=== PATIENT | male | born 1985 | race Caucasian/White ===

== ENCOUNTER → 2020-09-21 12:18 | Outpatient (CLI) | payer OTHER, MEDICAID, SELFPAY ==
[2020-09-21 12:43] LABS: COVID19 -Nasal RAPID Negative (Negative)
== END ==
PROVIDERS: Family Provider Family Medicine; PCP Family Medicine; Visit Provider Student in an Organized Health Care Education/Training Program
DX: Z20.822 Contact with and (suspected) exposure to COVID-19 (principal)
CPT/HCPCS: 87635

== ENCOUNTER 2021-09-24 05:17 | Emergency (ER) | payer OTHER, MEDICAID, SELFPAY ==
[2021-09-24 05:25] VITALS: BP 155/68; PULSE 80; RESP 20; TEMP 35.7; O2SAT 99
--- NOTE | 2021-09-24 06:31 | ED.DIZZY ---
HPI - Dizziness <Theresa Santana DO - Last Filed: 09/25/21 07:36> General Chief Complaint: Dizziness Stated Complaint: disoriented and dizzy Time Seen by Provider: 09/24/21 05:31 Source: patient Mode of arrival: Ambulatory Limitations: no limitations History of Present Illness HPI Narrative: This is a 35-year-old male who comes emergency department complaining of feeling dizzy like the room is moving or he is on a boat. He states he went to bed felt totally normal last night. Woke up this morning and feels like he is on a boat. He denies any spinning of the room. Denies any headache. Denies any recent nasal congestion or upper respiratory infections. No ear pain or fullness. Patient denies any chest pain or shortness of breath. Had some nausea early but it has resolved. He states the since patient has been improving as time goes by. He felt very off balance when he 1st stood up but is able to ambulate much more normally now. Patient denies any other GI or urinary symptoms. No swelling in extremities. Related Data Home Medications Medication Instructions Recorded Confirmed gabapentin 100 mg capsule 100 mg PO TID cap 01/08/18 09/03/21 meloxicam submicronized 10 mg 10 mg PO DAILY 01/08/18 09/03/21 capsule omeprazole 40 mg capsule,delayed 40 mg PO DAILY 01/08/18 09/03/21 release diclofenac sodium 1 % topical gel 2 gram TOP QID 08/08/18 09/03/21 (Voltaren) levothyroxine 50 mcg tablet 50 mcg PO DAILY #30 tab 10/08/18 09/03/21 Previous Rx's Medication Instructions Recorded albuterol sulfate 90 mcg/actuation 0 INH SEE INSTRUCTIONS #1 inh 10/21/12 aerosol inhaler (Proventil HFA) meclizine 25 mg tablet 25 mg PO TID PRN #14 tab 09/24/21 Allergies Allergy/AdvReac Type Severity Reaction Status Date / Time PENICILLIN Allergy Mild Uncoded 09/03/21 18:29 SULFA Allergy Mild Uncoded 09/03/21 18:29 Review of Systems <DO Pranav Zhang Last Filed: 09/25/21 07:36> Review of Systems ROS Unobtainable: All systems reviewed & are unremarkable except as noted in HPI and below Patient History <Theresa Santana DO - Last Filed: 09/25/21 07:36> Medical History Bronchitis Sinusitis Social History Smoking Status: Current every day smoker Smoking Status: Current every day smoker Substance Use Type: does not use Exam <DO Pranav Zhang Last Filed: 09/25/21 07:36> Narrative Exam Narrative: GEN: Obese male, alert and oriented, patient appears to be in mild distress. HEENT: Atraumatic, pupils are equal round reactive to light, extraocular movements are intact, nares are clear, TMs are clear with no fluid, there is no conjunctival pallor. Throat is clear without any exudates, erythema, tonsillar enlargement or uvular deviation, no facial droop. HEART: Regular rate and rhythm without murmur, clicks, rubs. LUNGS:Lungs clear to auscultation, no wheezes, rales, crackles, chest moves symmetrically ABD:bowel sounds normal, soft, non-tender, no guarding, rebound, rigidity, no masses noted, no hepatosplenomegaly :No CVA tenderness MSCL: Non-tender, no muscle atrophy, muscles strength 5/5 upper and lower extremities, full range of motion, normal gait NEURO:CN 2-12 intact, sensation normal, reflexes 2/4 upper and lower extremities. finger nose finger test normal, heel mo test normal, romberg normal SKIN: No rash or erythema or skin changes. Initial Vital Signs Initial Vital Signs: Vital Signs Temperature 96.2 F L 09/24/21 05:25 Pulse Rate 80 09/24/21 05:25 Respiratory Rate 20 09/24/21 05:25 Blood Pressure 155/68 H 09/24/21 05:25 Pulse Oximetry 99 09/24/21 05:25 <Deandra Gayle DO - Last Filed: 09/24/21 16:08> Initial Vital Signs Initial Vital Signs: Vital Signs Temperature 96.2 F L 09/24/21 05:25 Pulse Rate 80 09/24/21 05:25 Respiratory Rate 20 09/24/21 05:25 Blood Pressure 155/68 H 09/24/21 05:25 Pulse Oximetry 99 09/24/21 05:25 Scores <Theresa Santana DO - Last Filed: 09/25/21 07:36> NIH Stroke Scale Level of Conciousness: Alert, keenly responsive Ask month/age: Answers both questions correctly. Open/close eyes, close hand: Performs both tasks correctly Best gaze horizontal: Normal Visual mckinney: No visual loss Facial palsy: Normal symetrical movement Left arm drift: No drift for full 10 sec Right arm drift: No drift for full 10 sec Left leg drift: No drift for full 5 sec Right leg drift: No drift for full 5 sec Limb ataxia: Absent Sensory on face/arms/legs: Normal, no sensory loss Best language: No aphasia, normal Dysarthria: Normal Extinction or inattention: No abnormality Total NIH Stroke scale score: 0 <Deandra Gayle DO - Last Filed: 09/24/21 16:08> NIH Stroke Scale Total NIH Stroke scale score: 0 Course <Theresa Santana DO - Last Filed: 09/25/21 07:36> Orders Ordered: ED Orders 09/24/21 07:42 Basic Metabolic Panel Stat Complete Blood Count AUTO DIFF Stat Vital Signs Vital signs: Vital Signs - 8 hr 09/24/21 08:49 Pulse Rate 66 Respiratory Rate 18 Blood Pressure 148/80 H Pulse Oximetry 98 <Deandra Gayle DO - Last Filed: 09/24/21 16:08> Orders Ordered: ED Orders 09/24/21 07:42 Basic Metabolic Panel Stat Complete Blood Count AUTO DIFF Stat Vital Signs Vital signs: Vital Signs - 8 hr 09/24/21 08:49 Pulse Rate 66 Respiratory Rate 18 Blood Pressure 148/80 H Pulse Oximetry 98 MDM - Dizziness <Theresa Santana DO - Last Filed: 09/25/21 07:36> Lab Data Result diagrams: 09/24/21 07:42 09/24/21 07:42 Labs: Lab Results 09/24/21 09/24/21 Range/Units 07:42 07:42 WBC 9.7 (4.5-11.0) X10^3/uL RBC 4.80 (4.5-5.9) X10^6/uL Hgb 13.8 (13.5-17.5) g/dL Hct 40.0 L (41-53) % MCV 83.3 (80-100) fL MCH 28.7 (26-34) PG MCHC 34.4 (30-36) % RDW 14.3 (11.6-14.8) % Plt Count 218 (150-400) X10^3/uL Neut % (Auto) 50.6 (50-75) % Lymph % (Auto) 36.6 (25-40) % Davidson % (Auto) 8.5 (3-14) % Eos % (Auto) 2.8 (2-4) % Baso % (Auto) 1.5 (0-2) % Neut # (Auto) 4900 (0823-9477) /uL Lymph # (Auto) 3600 (6214-8146) /uL Davidson # (Auto) 800 (0-900) /uL Eos # (Auto) 300 (0-450) /uL Baso # (Auto) 100 (0-100) /uL Sodium 140 (137-145) mmol/L Potassium 4.4 (3.4-5.1) mmol/L Chloride 105 (98-107) mmol/L Carbon Dioxide 29 (22-32) mmol/L BUN 14 (9-20) mg/dL Creatinine 0.70 (0.66-1.25) mg/dL Estimated GFR > 60 (>60) mL/min BUN/Creatinine Ratio 20.0 (6-22) Glucose 96 (70-100) mg/dL Calcium 9.1 (8.4-10.2) mg/dL ECG Data Attestation: I personally reviewed and interpreted this ECG as follows: Interpretation: Sinus rhythm rate of 73 NV 164 QRS of 102 and QTC 451. No acute ST elevation depression. [facility] Narrative Medical decision making narrative: This is a 35-year-old male who comes in with complaint of waking up with vertigo like symptoms. Patient is not have any acute neurologic changes. Patient is obese but does not have any other risk factors for stroke, suspect benign etiology but head CT and labs were obtained. Patient was signed out to Dr. Gayle while awaiting final results. Patient's symptoms have improved and he defers any meclizine or other medications. <Deandra Gayle, DO - Last Filed: 09/24/21 16:08> Lab Data Labs: Lab Results 09/24/21 09/24/21 Range/Units 07:42 07:42 WBC 9.7 (4.5-11.0) X10^3/uL RBC 4.80 (4.5-5.9) X10^6/uL Hgb 13.8 (13.5-17.5) g/dL Hct 40.0 L (41-53) % MCV 83.3 (80-100) fL MCH 28.7 (26-34) PG MCHC 34.4 (30-36) % RDW 14.3 (11.6-14.8) % Plt Count 218 (150-400) X10^3/uL Neut % (Auto) 50.6 (50-75) % Lymph % (Auto) 36.6 (25-40) % Davidson % (Auto) 8.5 (3-14) % Eos % (Auto) 2.8 (2-4) % Baso % (Auto) 1.5 (0-2) % Neut # (Auto) 4900 (6127-8112) /uL Lymph # (Auto) 3600 (2085-1087) /uL Davidson # (Auto) 800 (0-900) /uL Eos # (Auto) 300 (0-450) /uL Baso # (Auto) 100 (0-100) /uL Sodium 140 (137-145) mmol/L Potassium 4.4 (3.4-5.1) mmol/L Chloride 105 (98-107) mmol/L Carbon Dioxide 29 (22-32) mmol/L BUN 14 (9-20) mg/dL Creatinine 0.70 (0.66-1.25) mg/dL Estimated GFR > 60 (>60) mL/min BUN/Creatinine Ratio 20.0 (6-22) Glucose 96 (70-100) mg/dL Calcium 9.1 (8.4-10.2) mg/dL Imaging Data CT scan - head: Radiologist's Impression: CT Scan Report Signed Patient: Jaswant Chung MR#: [id number] : 1985 Acct:[id number] Age/Sex: 35 / M Date of Service: 09/24/21 Loc: ED Accession Number: [id number] ?? Procedure: CT head/brain wo con Ordering Provider: Theresa Santana D.O. PROCEDURE:? CT HEAD/BRAIN WO CON ? INDICATIONS:? vertigo ? TECHNIQUE:? Noncontrast 4.5 mm thick angled axial sections acquired from the foramen magnum to the vertex, with coronal and sagittal reformats.? For radiation dose reduction, the following was used:? automated exposure control, adjustment of mA and/or kV according to patient size.? ? COMPARISON:? None. ? FINDINGS:? Image quality:? Excellent.? ? CSF spaces:? Basal cisterns are patent.? No extra-axial fluid collections.? Ventricles are normal in size and shape.? ? Brain:? No midline shift.? No intracranial masses or hemorrhage.? Saucedo-white matter interface is normal.? ? Skull and face:? Calvarium and visualized facial bones are intact, without suspicious lesions.? ? Sinuses:? Mild mucosal thickening in the maxillary sinuses.? The mastoids are clear.? ? IMPRESSION:? No acute intracranial disease process. ? ? Dictated by: Hina Bui MD, PhD on 09/24/2021 at 8:14 ?? MDM Narrative Medical decision making narrative: This is a 35-year-old male who comes in with complaint of waking up with vertigo like symptoms. Patient is not have any acute neurologic changes. Patient is obese but does not have any other risk factors for stroke, suspect benign etiology but head CT and labs were obtained. Patient was signed out to Dr. Gayle while awaiting final results. Patient's symptoms have improved and he defers any meclizine or other medications. Patient signed out to me by Dr. Santana. I have seen evaluated patient myself. His symptoms have overall improved. He has no focal deficits head CT and blood work EKG are reassuring. He does not need any medication now. Family history of vertigo as well. Overall for feeling better. Discharge Plan Departure Patient Disposition: Home Clinical Impression: Vertigo Instructions: DI for Vertigo Activity Restrictions/Additional Instructions: Follow-up with ENT if you are having persistent symptoms of vertigo. Call for an appointment. You may take meclizine 1-2 tablets every 6 hours as needed Prescription sent to [facility]. Please return for severe headaches, new vision changes, rapidly worsening symptoms inability to walk, new numbness, tingling or weakness, facial droop or difficulty, persistent vomiting or other new or concerning symptoms. Prescriptions: New meclizine 25 mg tablet 25 mg PO TID PRN (Reason: dizziness) Qty: 14 0RF No Action diclofenac sodium [Voltaren] 1 % gel 2 gram TOP QID 0RF gabapentin 100 mg capsule 100 mg PO TID 0RF meloxicam submicronized 10 mg capsule 10 mg PO DAILY 0RF omeprazole 40 mg capsule,delayed release(DR/EC) 40 mg PO DAILY 0RF levothyroxine 50 mcg tablet 50 mcg PO DAILY Qty: 30 0RF albuterol sulfate [Proventil HFA] 90 MCG/PUFF HFA aerosol inhaler 0 INH SEE INSTRUCTIONS Qty: 1 0RF Referrals: Dre Collado MD [Primary Care Provider] -
--- NOTE | 2021-09-24 06:44 | DI.CT.S_ITS ---
PROCEDURE: CT HEAD/BRAIN WO CON INDICATIONS: vertigo TECHNIQUE: Noncontrast 4.5 mm thick angled axial sections acquired from the foramen magnum to the vertex, with coronal and sagittal reformats. For radiation dose reduction, the following was used: automated exposure control, adjustment of mA and/or kV according to patient size. COMPARISON: None. FINDINGS: Image quality: Excellent. CSF spaces: Basal cisterns are patent. No extra-axial fluid collections. Ventricles are normal in size and shape. Brain: No midline shift. No intracranial masses or hemorrhage. Saucedo-white matter interface is normal. Skull and face: Calvarium and visualized facial bones are intact, without suspicious lesions. Sinuses: Mild mucosal thickening in the maxillary sinuses. The mastoids are clear. IMPRESSION: No acute intracranial disease process. Dictated by: Hina Bui MD, PhD on 09/24/2021 at 8:14 Approved by: Hina Bui MD, PhD on 09/24/2021 at 8:15
[2021-09-24 07:54] LABS: Add Manual Diff / Slide Review NO; Basophils Absolute Auto 100 /uL (0-100); Basophils Percent Auto 1.5 % (0-2); Eosinophils Absolute Auto 300 /uL (0-450); Eosinophils Percent Auto 2.8 % (2-4); Hemoglobin 13.8 g/dL (13.5-17.5); Lymphocytes Absolute Auto 3600 /uL (1100-4500); Lymphocytes Percent Auto 36.6 % (25-40); Mean Corpuscular HGB Conc 34.4 % (30-36); Mean Corpuscular Hemoglobin 28.7 PG (26-34); Mean Corpuscular Volume 83.3 fL (80-100); Monocytes Absolute Auto 800 /uL (0-900); Monocytes Percent Auto 8.5 % (3-14); Neutrophils Absolute Auto 4900 /uL (1500-7000); Neutrophils Percent Auto 50.6 % (50-75); Platelet Count 218 X10^3/uL (150-400); Red Cell Distribution Width 14.3 % (11.6-14.8); White Blood Cell Count 9.7 X10^3/uL (4.5-11.0)
[2021-09-24 08:00] LABS: Blood Urea Nitrogen 14 mg/dL (9-20); Calcium 9.1 mg/dL (8.4-10.2); Carbon Dioxide 29 mmol/L (22-32); Chloride 105 mmol/L (98-107); Estimated Glomerular Filt Rate > 60 mL/min (>60); Glucose 96 mg/dL (70-100); HEMOLYSIS 39 (0-50); Potassium 4.4 mmol/L (3.4-5.1); Sodium 140 mmol/L (137-145)
[2021-09-24 08:49] VITALS: BP 148/80; PULSE 66; RESP 18; O2SAT 98
== END 2021-09-24 08:54 | disposition home or self-care (01) ==
PROVIDERS: Emergency Medicine; Emergency Provider Emergency Medicine; Family Provider Family Medicine; PCP Family Medicine
DX: R42 Dizziness and giddiness (principal)
CPT/HCPCS: 36415; 70450; 80048; 85025; 93005; 99284

== ENCOUNTER → 2022-05-13 13:53 | Outpatient (CLI) | payer OTHER, MEDICAID, SELFPAY ==
--- NOTE | 2022-05-13 14:09 | DIET.CONS ---
Dietary Consultation Note Assessment: 36y M attending first of twelve pre-bariatric nutrition visits for gastric bypass at [facility] through [employer] insurance. Pt grew up in [place] has always had a large body. Pt states his mom's side of the family also has large habitus including his biological brother. Pt very motivated to have surgery, would like to lose 200#. 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 Pt lives in transitional housing with disabled and two daughters aged 6y and 12y. Pt reports family are picky eaters (processed foods). Pts nutrition choices complicated by food insecurity. EBT benefits $800/mo but run out half-way through month Tuesday morning food bank bags Pt reports himself an emotional and boredom eater though no hx eating disorder. Usual Day: wakes at 6am B: hit or miss, sometimes breakfast sandwich or two- homemade or from [employer], lots of coffee c albanian vanilla creamer L: leftovers, sandwich, sometimes eats out D: pizza, stew, protein starch (rice and pasta), dessert or corn Sn: crackers, chips- more savory options, some sweets but not much Ursula: NOS energy drinks (51g added sugar x2) likes kris fizzy water Ht: 5'11 Wt: 190kg BMI: 56.8 Goal Weight: 200# Nutrition Diagnosis: Class 3 obesity r/t undesirable food intake, physical inactivity, and nutrition related knowledge deficit aeb BMI 56.8, pt with osteoarthritis of knee with sedentary lifestyle, pt reports emotional and boredom eating, pt worried he will have to subsist on steamed vegetables. Interventions: 1. Reviewed requirements for [facility] b[facility]ric program. Pt understands and agrees to twice monthly visits with RD x12. Pt able to reschedule up to 2 visits. 2. Discussed various bariatric surgical options and nutritional consequences of each. 3. Began education with added sugar in the diet. Pt consuming 102g added sugar daily in two beverages plus more in PO intake. Pt's first goal is to switch to SF energy drink and eliminate NOS drinks. Monitoring/Evaluations: f/u in 2w for second education and monitoring session. Electronically Signed by: Heike Kumari 05/13/22 14:09 Clinical Dietitian [address] [address]
== END ==
PROVIDERS: Family Provider Family Medicine; PCP Family Medicine; Referring Provider Neuromusculoskeletal Medicine & OMM; Visit Provider Neuromusculoskeletal Medicine & OMM
DX: E66.01 Morbid (severe) obesity due to excess calories (principal); Z68.43 Body mass index [BMI] 50.0-59.9, adult; Z71.3 Dietary counseling and surveillance
CPT/HCPCS: 97802

== ENCOUNTER → 2022-05-24 10:25 | Outpatient (CLI) | payer OTHER, MEDICAID, SELFPAY ==
--- NOTE | 2022-05-24 10:29 | DIET.OUTPTC ---
Dietary Outpatient Consultation Note Consultation Date: 05/24/2022 36y M attending 2 of 12 pre-bariatric nutrition visits to qualify for bariatric surgery. Pt reports weight on home scale: 436# (-4# in 2w, 440# starting out on home scale) Pt had goals two first session: 1. Establish with PCP from . Completed. Pt established c Dr. Rebolledo, first visit 05/31/22. Will be important for pt and PCP to check to ensure they can transfer bariatric surgery referral, as it was initiated through pts previous PCP at [facility]. Pt would benefit from new labs and vitamin D check. Pts morbid obesity puts him at risk for low vitamin D. Pt is low income, could benefit from Rx Vitamin D if indicated. 2. Pt will stop drinking full kcal NOS energy drinks and switch to sugar free variety and seltzer water. Success to date. Pt had one slip up, this morning where he drank full kcal NOS. Pt had coffee but dropped mug and broke it. Was mug his father gave him which made him feel emotional. Pt looked in fridge, no SF energy drinks, only full kcal NOS so drank it. Pt felt guilty doing this. Otherwise had no soda or other energy drinks x2w. Pt states in addition to above goals being met, pt has been walking twice as much as usual ([place] [employer] dog park, skate park). Pt reports instead of tossing ball for dog from one spot, he continuously moves around to throw the ball. Pt states his knees are doing ok with this increased activity. Pt inquires about weight loss supplements and any other supplements he may need for health. Has heard magnesium is good one to take. Pt reports his family is out of EBT benefits which won't be refilled for another 11 days. He states this often happens because they overspend on food for holiday meals and because daughters are eating at home more from being off during winter break. Reiterated using the [employer] free shop coupon if he can get over to [place]. Interventions: 1. Reinforced pts good progress to date and success with first goals.Reiterated this is a marathon not a sprint, so we will continue working on crafting plan that will be successful for pt. 2. Discussed supplements in general and those for weight loss. Encouraged pt to have PCP run pricing for semaglutide in case copay is low as it is FDA approved for weight management. Other weight loss supplements not proven to be safe nor indicated. Best plan is to get nutrients from food first and only supplement in necessary. Encouraged pt to get labs drawn including Vit D as pt at risk of low Vit D due to body habitus. 3. Collaborated c pt on processing circumstances and behaviors surrounding intake of high sugar energy drink this morning. Pt states having SF options in fridge protective against drinking the NOS. Pt commits to keeping several in fridge at all times as rest of family won't drink them and he likes them. New Goals: 1. Pt will abstain from consuming all sugar sweetened beverages. 2.Pt will stay active while playing with dog at dog park as tolerated. Monitoring/Evaluation: f/u in 2w to continue monitoring. Visit 3 will educate pt on keeping food record. Electronically Signed by: Heike Kumari 05/24/22 10:29 Clinical Dietitian [address] [address]
== END ==
PROVIDERS: Referring Provider Neuromusculoskeletal Medicine & OMM; Visit Provider Neuromusculoskeletal Medicine & OMM
DX: Z71.3 Dietary counseling and surveillance (principal)
CPT/HCPCS: 97803

== ENCOUNTER → 2022-06-07 11:33 | Outpatient (CLI) | payer OTHER, MEDICAID, SELFPAY ==
--- NOTE | 2022-06-07 11:37 | DIET.CONS ---
Dietary Consultation Note Assessment: 36y M attending third of 12 nutrition visits to qualify for bariatric surgery at through [employer]. Pt met with Dr. Rebolledo last week and has lost 13# since initiation of nutrition visits through increased physical activity and elimination of sugar sweetened beverages. Pt now drinking SF fizzy water and SF energy drinks, has not had any sugar beverages x2w. Pt expresses some frustration over his family's eating habits. They prefer UPFs but pt likes veggies. Feels bad to be spending money on himself and also over the time it takes to make separate meals for himself and his family. Pt has been stepping up his walking and reducing sedentary time. Wt: 427# (440# when started) Interventions: 1. Reinforced pts lifestyle changes thus far and starting weigh in process with new PCP. Pts original bariatric referral was through last PCP at [facility]. 2. Educated pt on food journalling. Provided journal sheets and instructions for logging next two weeks. Monitoring/Evaluations: f/u in 2w for 08/25 visit, will review food journal and make nutrition related goals to continue weight loss for surgery. Electronically Signed by: Heike Kumari 06/07/22 11:37 Clinical Dietitian [id number] [place] [address]
== END ==
PROVIDERS: Referring Provider Neuromusculoskeletal Medicine & OMM; Visit Provider Neuromusculoskeletal Medicine & OMM
DX: Z71.3 Dietary counseling and surveillance (principal)
CPT/HCPCS: 97803

== ENCOUNTER → 2022-06-21 10:26 | Outpatient (CLI) | payer OTHER, MEDICAID, SELFPAY ==
--- NOTE | 2022-06-21 10:40 | DIET.OUTPTC ---
Dietary Outpatient Consultation Note Consultation Date: 06/21/2022 36y M attending 4th of 12 pre-bariatric nutrition visits. Pt had covid x10d, came out of quarantine yesterday. Pt did not log PO intake as he was having N/V and wasn't eating much, what he was eating was unusual for him. Pt continues to walk dog, noticing his clothes are fitting more loose, pt with reduced inflammation in knee. Plan for f/u in 2w to review food log. Reiterated importance of sharing this information with RD so we can discuss current intake and make meaningful changes to support weight loss efforts. Electronically Signed by: Heike Kumari 06/21/22 10:40 Clinical Dietitian [id number] [place] [address]
== END ==
PROVIDERS: Referring Provider Neuromusculoskeletal Medicine & OMM; Visit Provider Neuromusculoskeletal Medicine & OMM
DX: Z71.3 Dietary counseling and surveillance (principal)
CPT/HCPCS: 97803

== ENCOUNTER → 2022-07-05 10:25 | Outpatient (CLI) | payer OTHER, MEDICAID, SELFPAY ==
--- NOTE | 2022-07-05 10:30 | DIET.OUTPTC ---
Dietary Outpatient Consultation Note Consultation Date: 07/05/2022 36[address] M attending RD f/u for 5th of 12 outpatient pre-bariatric nutrition visits. Pt weighed by PCP this mornin# (-6# in 1mo, starting weight 427#, 15# to go) Pt has been walking daily. Instead of standing at dog park, is walking while dog plays. Also walking around town more. Pt brought in food logs. Diet recall shows high pro breakfast, portion controlled lunch and portion controlled dinner with no intake sugar sweetened beverages. Pt incorporating high pro snacks. Pt with some intake sweets but minimal portion size. Usual Day: B: 4-5 scrambled eggs L: 1 1/2 c mixed meal like chicken with pasta D: 1c high fiber breakfast cereal with whole milk Sn: string cheese or canned chicken Sn: SF popsicle or small slice carrot cake Ursula: 6-8 cups water, 4 SF carbonated santos, 2 SF energy drinks Pt gave remainder of carrot cake to his mom so he would not be tempted by it this week. Interventions: 1. Reviewed food log. Discussed increasing intake F/V starting with one serving each daily. Provided handout on 5 ways to cook broccoli as pt states this is his favorite veg. 2. Reinforced pts efforts at logging intake, provided additional diet log sheets. Reinforced pts abstinence from sugar drinks and keeping sweet portions low. Pt progressing well with efforts. Pt remains motivated. Pt starting PT in late July for 12w. F/u in 2w to continue monitoring and education. Electronically Signed by: Heike Kumari 07/05/22 10:30 Clinical Dietitian [address] [address]
== END ==
PROVIDERS: PCP Family Medicine; Referring Provider Neuromusculoskeletal Medicine & OMM; Visit Provider Neuromusculoskeletal Medicine & OMM
DX: Z71.3 Dietary counseling and surveillance (principal)
CPT/HCPCS: 97803

== ENCOUNTER → 2022-07-19 10:27 | Outpatient (CLI) | payer OTHER, MEDICAID, SELFPAY ==
--- NOTE | 2022-07-19 11:17 | DIET.OUTPTC ---
Dietary Outpatient Consultation Note Consultation Date: 07/19/2022 36y M attending 6th of [address] visits for bariatric surgery. Pt has weigh in with PCP this afternoon. Pt brings in his food logs for review. Pt doing well eating 3 meals per day and 1 snack. B: eggs L: mixed meal-protein/carb D: mixed meal-protein/carb Sn: beef jerky or cheese stick or SF popsicle Pt not walking as much as last visit. The weather has been cold and it is slippery outside. Pts knees bothering him more. Instead of 3 laps, doing 1 lap at [employer]. Pts daughter starts softball next week. He plans to practice with her at home to increase PA. Pt desires to do a month of ketogenic diet to see what it is like and if it helps his weight loss. Educated pt on importance of low fat/low carb/high protein diet after bariatric surgery for continued weight management. Pt understands, still would like to proceed with 1mo keto diet trial and likely to try with/without RD help. Educated pt on ketogenic diet including 30g net carb limit. Reviewed foods to avoid and those to include. Practiced label reading for total carbs and fiber. Educated pt on keto urine test strips and using daily for first 2w to ensure in ketosis. Encouraged maintaining kcal deficit and keeping PA high to support weight loss efforts. F/u in 2w to review food diary. Electronically Signed by: Heike Kumari 07/19/22 11:17 Clinical Dietitian [address] [place] [address]
== END ==
PROVIDERS: PCP Family Medicine; Referring Provider Neuromusculoskeletal Medicine & OMM; Visit Provider Neuromusculoskeletal Medicine & OMM
DX: E66.01 Morbid (severe) obesity due to excess calories (principal); Z71.3 Dietary counseling and surveillance
CPT/HCPCS: 97803

== ENCOUNTER → 2022-08-02 10:27 | Outpatient (CLI) | payer OTHER, MEDICAID, SELFPAY ==
--- NOTE | 2022-08-02 16:07 | DIET.OUTPTC ---
Dietary Outpatient Consultation Note Consultation Date: 08/02/2022 36y M attending 7 of 12 prebariatric visits to qualify for bariatric surgery. Pt weighed by PCP today: 405# (-11# in 2w, starting weight 427#, pt has achieved his weight requirement for bariatric surgery of 22#) Pt tried ketogenic diet for about a week but fell out of ketosis and was crabby so decided he wanted to go back to sensible eating and exercise for weight loss. Pt continues to eat 3 meals and one snack daily. He said he has eaten more broccoli and brussels sprouts this year than in the past few years combined. His favorite way to prepare them are steamed. He purchased a steamer basket and enjoys using it. Pt continues to walk daily. He played basketball yesterday and it felt great. Pt very motivated to continue weight loss journey. Pt getting mixed messages from family and friends. Many want him to try to lose weight naturally and not through surgery. Pt knows he is focused and doing good job, but also feels he would benefit from the help of bariatric surgery to meet his ultimate goal of attaining 180#. Discussed with pt excellent progress so far, potential benefits and side effects of surgery. Encouraged pt to continue process and lose weight through required RD visits and come to bariatric center with list of concerns. Encouraged pt to lean on family and friends that are encouraging of him. Pt with concerns that quitting smoking will be big mary. Discussed habit of smoking and addictive nature of nicotine as two separate factors he can address to cut down. Encouraged pt to talk with PCP about options. f/u in 4w as RD out of town over spring. Electronically Signed by: Heike Kumari 08/02/22 16:07 Clinical Dietitian [address] [address]
== END ==
PROVIDERS: PCP Family Medicine; Referring Provider Family Medicine; Visit Provider Neuromusculoskeletal Medicine & OMM
DX: Z71.3 Dietary counseling and surveillance (principal)
CPT/HCPCS: 97803

== ENCOUNTER → 2022-08-31 15:53 | Outpatient (CLI) | payer OTHER, MEDICAID, SELFPAY ==
--- NOTE | 2022-09-01 17:20 | DIET.OUTPTC ---
Addendum entered by Heike Kumari 09/06/22 09:08: Consultation Date was 08/31/22, date below is an error. Original Note: Dietary Outpatient Consultation Note Consultation Date: 09/01/2022 36y M attending pre-bariatric nutrition visit. Current weight: 396# (-8# in 4w, -46# since starting pre-bariatric counselling) Pt has lost 10.5% of his weight to date. Pt following sensible eating patterns of 3 meals and one snack daily, low in carbohydrates. Pt only drinking water or calorie free beverages. Pt being physically active every day. f/u in 2w to continue required nutrition visits to qualify for surgery. Electronically Signed by: Heike Kumari 09/01/22 17:20 Clinical Dietitian [address] [address]
== END ==
PROVIDERS: PCP Family Medicine; Referring Provider Neuromusculoskeletal Medicine & OMM; Visit Provider Neuromusculoskeletal Medicine & OMM
DX: Z01.818 Encounter for other preprocedural examination (principal); Z71.3 Dietary counseling and surveillance
CPT/HCPCS: 97803

== ENCOUNTER → 2022-09-14 15:56 | Outpatient (CLI) | payer OTHER, MEDICAID, SELFPAY ==
--- NOTE | 2022-10-12 16:26 | DIET.OUTPTC ---
Dietary Outpatient Consultation Note Consultation Date: 09/14/2022 36y M attending 9th of 12 pre-bariatric nutrition visits to qualify for bariatric surgery. Pt has lost an additional 5# putting him at total weight loss of 51# at 391#. Pt continues to eat healthfully limiting sugar and not consuming sugar sweetened drinks. Pt continues to exercise daily by walking and started swimming as well. Pt excellent progress thus far. F/u in 2w to continue monitoring. Electronically Signed by: Heike Kumari 10/12/22 16:26 Clinical Dietitian [address] [address]
== END ==
PROVIDERS: PCP Family Medicine; Referring Provider Neuromusculoskeletal Medicine & OMM; Visit Provider Neuromusculoskeletal Medicine & OMM
DX: Z71.3 Dietary counseling and surveillance (principal)
CPT/HCPCS: 97803

== ENCOUNTER → 2022-10-19 15:50 | Outpatient (CLI) | payer OTHER, MEDICAID, SELFPAY ==
--- NOTE | 2022-10-26 16:45 | DIET.OUTPTC ---
Dietary Outpatient Consultation Note Consultation Date: 10/19/2022 36y M attending 12th of 12 pre-bariatric nutrition visits to qualify for bariatric surgery. Pt current weight today: 376# which is 10.1% below his starting weight of 418#. Pt has been compliant with diet diary, has achieved and surpassed his weight loss requirement and will be an excellent candidate for bariatric surgery. Pt working out daily, attending PT weekly and complying with high protein low carbohydrate diet. Pt has excellent motivation and family support. This is pts last necessary nutrition visit and weight in. Electronically Signed by: Heike Kumari 10/19/22 16:45 Clinical Dietitian [address] [place] [address]
== END ==
PROVIDERS: PCP Family Medicine; Referring Provider Family Medicine; Visit Provider Family Medicine
DX: E66.01 Morbid (severe) obesity due to excess calories (principal); Z71.3 Dietary counseling and surveillance
CPT/HCPCS: 97803

== ENCOUNTER → 2022-11-26 15:30 | Outpatient (CLI) | payer OTHER, MEDICAID, SELFPAY | PROVIDERS: PCP Family Medicine; Referring Provider Family Medicine; Visit Provider Family Medicine | DX: E66.01 Morbid (severe) obesity due to excess calories (principal); Z71.3 Dietary counseling and surveillance | CPT/HCPCS: 97803 ==

== ENCOUNTER → 2022-12-07 15:21 | Outpatient (CLI) | payer OTHER, MEDICAID, SELFPAY ==
--- NOTE | 2022-12-07 17:07 | DIET.CONS ---
Addendum entered by Heike Kumari 02/18/23 12:38: Nutrition visit conducted on 11/26/22: Original Note: Dietary Consultation Note 37y M attending last pre-bariatric visit to qualify for bariatric surgery. All notes were submitted last month but bariatric center states one visit was missing, so meeting c pt today. Pt successfully quit smoking, has maintained his weight loss though continued loss has plateaued somewhat. Pt very excited for bariatric surgery. There is some confusion as Dr. Pasquale Chauhan from [facility] submitted first insurance authorization, then pt switched to Dr. Rebolledo. Pt excellent candidate for bariatric surgery. Electronically Signed by: Heike Kumari 11/30/22 17:07 [facility] [address] [address]
== END ==
PROVIDERS: PCP Family Medicine; Referring Provider Neuromusculoskeletal Medicine & OMM; Visit Provider Neuromusculoskeletal Medicine & OMM
DX: E66.01 Morbid (severe) obesity due to excess calories (principal); Z71.3 Dietary counseling and surveillance
CPT/HCPCS: 97803

== ENCOUNTER → 2023-06-22 15:05 | Outpatient (CLI) | payer OTHER, MEDICAID, SELFPAY | PROVIDERS: PCP Family Medicine; Referring Provider Surgery; Visit Provider Surgery | DX: E66.01 Morbid (severe) obesity due to excess calories (principal); Z98.84 Bariatric surgery status; Z68.43 Body mass index [BMI] 50.0-59.9, adult; I10 Essential (primary) hypertension; R12 Heartburn; G47.33 Obstructive sleep apnea (adult) (pediatric) | CPT/HCPCS: 93005; 93010 ==

== ENCOUNTER 2023-07-28 20:50 | Emergency (ER) | payer OTHER, MEDICAID, SELFPAY ==
[2023-07-28 21:02] VITALS: BP 179/109; PULSE 100; RESP 22; TEMP 36.3; O2SAT 96; BMI 52.9
--- NOTE | 2023-07-28 21:15 | ED.NAVMDI ---
HPI - Nausea/Vomiting/Diarrhea General Chief complaint: Nausea/Vomiting/Diarrhea Stated complaint: No bowel mvmt since tuesday Time Seen by Provider: 07/28/23 21:09 Source: patient Mode of arrival: Ambulatory History of Present Illness HPI Narrative: 37-year-old male with history of gastric bypass procedure on 07/24/2023 presents for 5 days of constipation. Patient states that his last bowel movement was the day before he underwent his procedure. He was discharged from the hospital despite not having a bowel movement because ?I just could not go?. He states that he was now experiencing lower abdominal cramping from his constipation. Tried taking milk of magnesia at home, but due to his gastric procedure he was having difficulty consuming enough to make him go to the bathroom. Triage report notes nausea, he denies this to myself. Related Data Home Medications Medication Instructions Recorded Confirmed escitalopram oxalate 20 mg tablet 10 mg PO DAILY 05/27/23 (Lexapro) Previous Rx's Medication Instructions Recorded levothyroxine 75 mcg tablet 75 mcg PO DAILY #90 tabs 08/30/22 fluticasone propionate 50 2 spray intranasal DAILY #16 grams 09/15/22 mcg/actuation nasal spray,suspension pantoprazole 40 mg tablet,delayed 40 mg PO DAILY #30 tabs 11/08/22 release (Protonix) albuterol sulfate 90 mcg/actuation 2 puff inhalation Q4-6H PRN 04/17/23 aerosol inhaler shortness of breath or wheezing #6.7 grams cetirizine 10 mg tablet (Zyrtec) 10 mg PO DAILY PRN allergy 05/30/23 symptoms #90 tabs diclofenac sodium 1 % topical gel 2 g topical QID #100 grams 05/30/23 Allergies Allergy/AdvReac Type Severity Reaction Status Date / Time PENICILLIN Allergy Mild Uncoded 05/27/23 08:11 SULFA Allergy Mild Uncoded 05/27/23 08:11 Review of Systems Review of Systems Narrative: Negative except as noted above Patient History Medical History Eczema (~1994) Osteoarthritis Sleep apnea (~2014) Anxiety Chronic back pain (~2015) Vertigo (~2021) Hypothyroidism Major depression Morbid obesity Tobacco dependence Surgical History Anesthesia History of arthroscopic knee surgery History of tonsillectomy and adenoidectomy Family History Father Cancer Brother Mental health problem Social History Smoking Status: Former smoker Smoking Status: Former smoker Substance Use Type: does not use Exam Initial Vital Signs Initial Vital Signs: Vital Signs Temperature 97.4 F L 07/28/23 21:02 Pulse Rate 100 H 07/28/23 21:02 Respiratory Rate 22 07/28/23 21:02 Blood Pressure 179/109 H 07/28/23 21:02 Pulse Oximetry 96 07/28/23 21:02 Oxygen Delivery Method Room Air 07/28/23 21:02 Const: Awake, alert, no acute distress, nontoxic appearing, obese Cardiac: regular rate, regular rhythm RESP: unlabored, clear bilaterally, no wheezing GI: Soft, obese, appropriately tender for postop course, clean, dry, intact incision sites Skin: Warm, Dry, surgical sites clean and dry Neuro: AO x3, CN II-XII grossly intact, moves all extremities Course Orders Ordered: ED Orders 07/28/23 21:14 XR KUB Stat Discontinued Medications Glycerin (Glycerin Supp Adult 1 Supp) 1 each DE NOW ONE Stop: 07/28/23 22:05 Last Admin: 07/28/23 22:21 Dose: 1 each Documented By: SERA Lactulose (Lactulose 20 Gm/30 Ml Solution) 20 gm PO NOW ONE Stop: 07/28/23 21:15 Last Admin: 07/28/23 23:11 Dose: Not Given Documented By: SERA Mineral Oil (Mineral Oil 1 Each Enema) 1 each DE NOW ONE Stop: 07/28/23 22:05 Last Admin: 07/28/23 22:53 Dose: 1 each Documented By: SERA Polyethylene Glycol/Electrolytes ([id number]/Sod Sulf,Bicarb,Cl/Kcl 4,000 Ml Solution) 4,000 ml PO NOW ONE Stop: 07/28/23 21:15 Last Admin: 07/28/23 23:11 Dose: Not Given Documented By: SERA Polyethylene Glycol/Electrolytes ([id number]/Sod Sulf,Bicarb,Cl/Kcl 4,000 Ml Solution) 4,000 ml PO NOW ONE Stop: 07/29/23 01:19 Last Admin: 07/29/23 01:19 Dose: 4,000 ml Documented By: DALE Sodium Biphosphate/Sodium Phosphate (Fleets Enema) 1 each DE NOW ONE Stop: 07/28/23 22:05 Last Admin: 07/28/23 23:20 Dose: 1 each Documented By: SERA Sodium Biphosphate/Sodium Phosphate (Fleets Enema) 1 each DE NOW ONE Stop: 07/29/23 00:09 Last Admin: 07/29/23 00:21 Dose: 1 each Documented By: DALE Vital Signs Vital signs: Vital Signs - 8 hr 07/28/23 21:02 07/29/23 01:23 Temperature 97.4 F L 98 F Pulse Rate 100 H 86 Respiratory Rate 22 20 Blood Pressure 179/109 H 152/84 H Pulse Oximetry 96 97 Oxygen Delivery Method Room Air Room Air MDM - Nausea/Vomiting/Diarrhea Differential Diagnosis Differential diagnosis: Likely dehydration and other (opioid constipation, slow transit constipation) Imaging Data Abdominal x-ray: Radiologist's Impression: PROCEDURE: XR KUB INDICATIONS: CONSTIPATION X 5 DAYS, GASTRIC BYPASS 07/23 TECHNIQUE: One view of the abdomen acquired. COMPARISON: None. FINDINGS: Surgical changes and devices: Surgical clips are seen in the upper abdomen. Bowel: A few mildly dilated air-filled loops of small bowel are seen in the central abdomen with air-fluid levels. Hyperdense material is seen in the colon, recommend correlation for prior oral contrast administration. Soft tissues: No suspicious abdominal calcifications. Visualized solid organ contours appear normal in size. Bones: No suspicious bony lesions. IMPRESSION: 1. A few mildly dilated loops of small bowel in the central abdomen may represent focal ileus versus possibly mild small bowel obstruction. 2. Hyperdense material is seen throughout the colon, correlate for prior oral contrast administration or ingestion of either hyperintense material. Minimal significant stool burden. Approved by: Quinton Hoang M.D. on 07/28/2023 at 22:09 MDM Narrative Medical decision making narrative: Well-appearing patient with constipation and no bowel movement for 5 days. Abdomen is soft, surgical sites are clean, dry, intact. Patient states he is still passing gas and denies nausea or vomiting to me. KUB shows some minimally dilated loops of small bowel in the upper abdomen, questioned if possible developing ileus, however patient's exam and history not consistent with ileus. He is tolerating p.o without difficulty, passing gas, abdomen is not distended. Patient given glycerin suppository and several enemas with production of some stool, however patient still feels like he is very constipated. After shared decision-making patient states he feels tired and just wants to go home. He was given a jug of GoLYTELY and counseled to slowly sip this as tolerated since he is recently post gastric bypass. He was advised to try to minimize his opiate medication use at home as this will worsen constipation. In addition it was recommended that he call his surgical team tomorrow for additional recommendations. Strict ED return precautions discussed at bedside. Patient expressed understanding of the plan and is in agreement at this time. All questions answered at the time of discharge. Discharge Plan Departure Patient Disposition: Home Clinical Impression: Constipation, History of gastric bypass Instructions: DI for Constipation Activity Restrictions/Additional Instructions: Call your surgeon's office if you continued to have constipation. If you have vomiting or. Passing gas then return to the emergency department for additional testing and treatment. Use the polyethylene glycol provided to help produce a bowel movement. Take several sips at a time to help induce a bowel movement. Prescriptions: No Action albuterol sulfate 90 mcg/actuation HFA aerosol inhaler 2 puff inhalation Q4-6H PRN (Reason: shortness of breath or wheezing) Qty: 6.7 0RF levothyroxine 75 mcg tablet 75 mcg PO DAILY Qty: 90 3RF diclofenac sodium 1 % gel 2 g TOP QID Qty: 100 11RF cetirizine [Zyrtec] 10 mg tablet 10 mg PO DAILY PRN (Reason: allergy symptoms) Qty: 90 3RF escitalopram oxalate [Lexapro] 20 mg tablet 10 mg PO DAILY fluticasone propionate 50 mcg/actuation spray,suspension 2 spray intranasal DAILY Qty: 16 11RF Rx Instructions: administer into each nostril pantoprazole [Protonix] 40 mg tablet,delayed release (DR/EC) 40 mg PO DAILY Qty: 30 11RF Referrals: Jany Rebolledo DO [Primary Care Provider] - Stand Alone Forms: Patient Portal/API
[2023-07-28] MEDS: GLYCERIN SUPP ADULT 1 SUPP 1 EACH PR (22:21)
[2023-07-28] MEDS: MINERAL OIL 1 EACH ENEMA PR (22:53)
[2023-07-28] MEDS: FLEETS ENEMA 1 EACH PR (23:20)
[2023-07-29] MEDS: FLEETS ENEMA 1 EACH PR (00:21)
[2023-07-29] MEDS: PEG3350/SOD SULF,BICARB,CL/KCL 4,000 ML SOLUTION 4000 ML PO (01:19)
[2023-07-29 01:23] VITALS: BP 152/84; PULSE 86; RESP 20; TEMP 36.6; O2SAT 97
== END 2023-07-29 01:24 | disposition home or self-care (01) ==
PROVIDERS: Emergency Provider Emergency Medicine; PCP Family Medicine
DX: K59.00 Constipation, unspecified (principal); Z98.84 Bariatric surgery status
CPT/HCPCS: 74018; 99283; 99284

== ENCOUNTER → 2024-03-19 08:54 | Outpatient (CLI) | payer OTHER, MEDICAID, SELFPAY ==
[2024-03-19 10:07] LABS: Hemoglobin 14.3 g/dL (13.5-17.5); Mean Corpuscular HGB Conc 34.8 % (30-36); Mean Corpuscular Hemoglobin 29.9 PG (26-34); Mean Corpuscular Volume 85.8 fL (80-100); Platelet Count 269 X10^3/uL (150-400); Red Blood Cell Count 4.77 X10^6/uL (4.5-5.9); Red Cell Distribution Width 13.5 % (11.6-14.8); White Blood Cell Count 7.9 X10^3/uL (4.5-11.0)
[2024-03-19 10:15] LABS: Hemoglobin A1C% w Est Avg Glu 5.1 % (4.0-6.0)
[2024-03-19 10:32] LABS: Alanine Aminotransferase 24 IU/L (<50); Albumin 4.2 g/dL (3.5-5.0); Albumin Globulin Ratio 1.6 (1.0-2.8); Alkaline Phosphatase 81 U/L (38-126); Aspartate Aminotransferase 25 IU/L (17-59); BUN Creatinine Ratio 19.7 (6-22); Bilirubin Total 0.6 mg/dL (0.2-1.3); Blood Urea Nitrogen 15 mg/dL (9-20); Calcium 9.5 mg/dL (8.4-10.2); Carbon Dioxide 26 mmol/L (22-32); Chloride 104 mmol/L (98-107); Cholesterol 188 mg/dL (140-199); Estimated Glomerular Filt Rate > 60 mL/min (>60); Globulin 2.7 g/dL (1.7-4.1); Glucose 82 mg/dL (70-100); HDL Cholesterol 36 mg/dL (40-60); HEMOLYSIS < 15 (0-50); LDL Cholesterol Calculated 97 mg/dL (<100); Potassium 4.4 mmol/L (3.4-5.1); Sodium 138 mmol/L (137-145); Total Protein 6.9 g/dL (6.3-8.2); Triglycerides 277 mg/dL (35-150)
[2024-03-19 10:56] LABS: TSH w/ Reflex to FT4 3.36 uIU/mL (0.47-4.68)
[2024-03-19 11:16] LABS: Vitamin B12 669 pg/mL (239-931)
[2024-03-19 11:18] LABS: HIV 1 & 2 Ab/Ag 4th Gen Combo NEGATIVE (NEGATIVE); Hep C Virus Ab w/Reflex Quant NEGATIVE s/c (NEGATIVE)
[2024-03-19 16:07] LABS: Vitamin D 25 Hydroxy (D3) 44.4 ng/mL (30.0-100.0)
== END ==
PROVIDERS: PCP Family Medicine; Referring Provider Family Medicine; Visit Provider Family Medicine
DX: E66.01 Morbid (severe) obesity due to excess calories (principal); F32.9 Major depressive disorder, single episode, unspecified; Z98.84 Bariatric surgery status; Z13.21 Encounter for screening for nutritional disorder; R42 Dizziness and giddiness; Z59.00 Homelessness unspecified; E63.9 Nutritional deficiency, unspecified; E03.8 Other specified hypothyroidism; F32.0 Major depressive disorder, single episode, mild
CPT/HCPCS: 36415; 80053; 80061; 82306; 82607; 83036; 84443; 85027; 86803; 87389